=== PATIENT | female | born 1960 | race Asian ===

== ENCOUNTER 2017-10-27 04:49 | Emergency (ER) | payer BC ==
[~2017-10-27] VITALS: Ht 152.4 cm; Wt 57.1 kg
[2017-10-27 04:52] VITALS: Ht 152.4 cm; Wt 57.1 kg
[2017-10-27 06:24] VITALS: BP 131/73
== END 2017-10-27 06:24 | disposition home or self-care (01) ==
LOC: ED 04:49
DX: L50.0 Allergic urticaria (principal); I10 Essential (primary) hypertension; E78.00 Pure hypercholesterolemia, unspecified
CPT/HCPCS: J1200; J2930; J3490; J7030

== ENCOUNTER 2018-08-12 20:09 | Emergency (ER) | payer BC ==
[~2018-08-12] VITALS: Ht 152.4 cm; Wt 55.3 kg
[2018-08-12 20:21] VITALS: Ht 152.4 cm; Wt 55.3 kg
[2018-08-12 20:58] LABS: BASOPHIL % 0.6 % (0-2); PLATELET COUNT 217 x10^3mcL (130-400); RED CELL DISTRIBUTION WIDTH 14.7 % (11.5-14.5)
[2018-08-12 21:26] LABS: CALCIUM 8.7 mg/dL (8.5-10.1); CARBON DIOXIDE 28.5 mmol/L (21-32); CHLORIDE SERUM 102 mmol/L (98-107); CREATININE SERUM 0.9 mg/dL (0.6-1.0); GFR1 > 60 mL/min; GLUCOSE SERUM 122 mg/dL (74-106); POTASSIUM SERUM 3.1 mmol/L (3.5-5.1); SODIUM SERUM 141 mmol/L (136-145)
[2018-08-12 21:31] LABS: ALBUMIN 3.8 g/dL (3.4-5.0); ALKALINE PHOSPHATASE 58 U/L (46-116); ALT/SGPT 22 U/L (14-59); AST/SGOT 18 U/L (15-37); BILIRUBIN TOTAL 0.37 mg/dL (0.20-1.00); TOTAL PROTEIN, SERUM 7.8 g/dL (6.4-8.2)
[2018-08-12 22:38] VITALS: BP 150/78
== END 2018-08-12 22:38 | disposition home or self-care (01) ==
LOC: ED 20:09
PROVIDERS: Emergency Medicine
DX: J06.9 Acute upper respiratory infection, unspecified (principal); R00.2 Palpitations; E87.6 Hypokalemia; I10 Essential (primary) hypertension; E78.00 Pure hypercholesterolemia, unspecified
CPT/HCPCS: 36415